=== PATIENT | male | born 1980 | race Caucasian/White ===

== ENCOUNTER 2025-04-07 12:03 | Emergency (ER) | payer SELFPAY ==
[2025-04-07 12:03] VITALS: BP 113/77; PULSE 102; RESP 17; TEMP 36.6; O2SAT 97
[2025-04-07 12:12] VITALS: BMI 18.6
--- NOTE | 2025-04-07 12:35 | PD.EDMEDCL ---
ED Medical Clearance RME/HPI General Chief complaint: Medical Clearance Stated complaint: MEDICAL CLEARANCE Time Seen by Provider: 04/07/25 12:23 Arrival date/time: 04/07/25 12:03 RME / HPI RME / HPI Narrative: 44-year-old male patient came in for evaluation regarding shelter clearance due to right inguinal hernia. Patient has been having hernia for several years, and came here asking to be checked. Currently patient is not having any abdominal pain, no nausea no vomiting, patient also denies any pain to the right inguinal area. Patient was seen by PCP before regarding hernia however according to him nothing was done that is why he stopped seeing them. Related Information Previous Rx's ?Medication ?Instructions ?Recorded acetaminophen 500 mg capsule 1,000 mg (2 x 500 mg) PO Q6H PRN 03/27/20 fever or pain #30 caps ibuprofen 600 mg tablet 600 mg PO Q8H PRN fever or pain 03/27/20 #30 tabs Allergies Allergy/AdvReac Type Severity Reaction Status Date / Time No Known Allergies Allergy Verified 03/27/20 15:58 Review of Systems Review of Systems Narrative Review of Systems: Review of system reviewed and within normal limits except mentioned in HPI ED Exam Narrative Physical exam: VITAL SIGNS: Reviewed. GENERAL APPEARANCE: Alert and interactive, follows commands, no acute distress, HEAD AND FACE: Non-traumatic. ENT: PERRL, pink conjunctivitis, eyelid no trauma, Mucous membrane moist. NECK: Supple, nontender, no nuchal rigidity. CHEST: No tenderness, no crepitus, no paradoxical movement, no retractions. LUNGS: Clear, well ventilated, symmetric, no rales, no wheezing, no ronchi, no stridor, good breath sounds bilaterally. HEART: Regular rate, regular rhythm, no murmur, no gallops. ABDOMEN: Soft, positive bowel sounds, nondistended, no guarding, nontender, no rebound, no masses, RECTAL: Deferred. GENITAL: Right inguinal hernia, reducible, nontender, no redness NEUROLOGICAL: Gross motor function intact sensory function intact, Appropriate for age. MUSCULOSKELETAL: low back nontender, full range of motion. EXTREMITIES: Nontender, full range of motion. SKIN: Color pink, dry, no rash, no lacerations, no abrasions, no contusions. LYMPHATICS: Deferred. Course Quality Measures none Vital Signs Vital signs: Vital Signs Temperature 97.8 F 04/07/25 12:03 Pulse Rate 102 H 04/07/25 12:03 Respiratory Rate 17 04/07/25 12:03 Blood Pressure 113/77 04/07/25 12:03 Pulse Oximetry (%) 97 04/07/25 12:03 Oxygen Delivery Method Room Air 04/07/25 12:03 Medical Clearance MDM Narrative MDM Narrative:: 44-year-old male patient came in for evaluation regarding shelter clearance due to right inguinal hernia. Patient has been having hernia for several years, and came here asking to be checked. Currently patient is not having any abdominal pain, no nausea no vomiting, patient also denies any pain to the right inguinal area. Patient was seen by PCP before regarding hernia however according to him nothing was done that is why he stopped seeing them. Imaging or workup started this time patient is not having any pain or symptoms regarding his hernia on the right. Patient's hernia is chronic. Patient needs to be seen by general surgeon outpatient for definitive management of her hernia. Patient data External records reviewed:: None Clinical information provided by:: patient Social determinants that could affect healthcare access:: none Patient has the following chronic illnesses:: None How is presenting disease/condition affected by chronic disease/condition?: no chronic disease Evaluation data The following diagnostics were reviewed and interpreted by me:: other (specify) (None) Lab and/or radiology exams considered but not ordered:: None Interpretation Summary: None Medications / Prescriptions Medications or Prescriptions considered but not ordered:: None Medication administrations:: None Consultations Consultation(s) initiated? (list below): No Diagnosis Medical Clearance Differential Diagnosis: inguinal hernia and other Most likely diagnosis given after review of the tests above:: Inguinal hernia, medical clearance for incarceration Admission Indicated Admission indicated?: not indicated Admission Request Was there a request for admission?: No Disposition Plan Disposition Plan: Discharge Discharge Attestation Discharge Attestation: Patient condition: Stable Discharge Plan Plan Patient Disposition: HOME (Self Care) Discharge Disposition comment: stable Prescriptions/Referrals Prescriptions/Med Rec: No Action ibuprofen 600 mg tablet 600 mg PO Q8H PRN (Reason: fever or pain) Qty: 30 0RF acetaminophen 500 mg capsule 1,000 mg PO Q6H PRN (Reason: fever or pain) Qty: 30 0RF Problem List Clinical Impression: Medical clearance for incarceration, Hernia, inguinal, right Patient/Caregiver Discharge Instructions Discharge Activity: activity as tolerated Education Materials: ED Hernia (Adult) Additional Instructions: Thank you for the opportunity for serving you today. You are stable for discharged . You are advised to: Follow-up with your PCP in 1 to 2 days and ask for referral to general surgeon once you get out of shelter. Return to ED for worsening of symptoms Print Language: [place] Islander Stand Alone Forms: Audrey Award Info., Patient Portal Info Letter
== END 2025-04-07 12:50 | disposition home or self-care (01) ==
PROVIDERS: Emergency Provider Family Medicine
DX: Z02.89 Encounter for other administrative examinations (principal); K40.90 Unilateral inguinal hernia, without obstruction or gangrene, not specified as recurrent
CPT/HCPCS: 99282

== ENCOUNTER 2025-04-20 12:44 | Emergency (ER) | payer SELFPAY ==
[2025-04-20 12:47] VITALS: BMI 18.8
[2025-04-20 12:48] VITALS: BP 106/62; PULSE 105; RESP 16; TEMP 36.6; O2SAT 96
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
== END 2025-04-20 13:14 ==
LOC: SERX 13:06
PROVIDERS: Emergency Provider Family Medicine; PCP Physician Assistant
DX: Z02.89 Encounter for other administrative examinations (principal); Z04.1 Encounter for examination and observation following transport accident
CPT/HCPCS: 99281